=== PATIENT | male | born 1980 | race American Indian/Alaskan Native ===

== ENCOUNTER 2021-07-31 07:33 | Observation (INO) | payer BC ==
[2021-07-31] MEDS ORDERED: SODIUM CHLORIDE 0.9% 1000 ML 1,000 ML IV ONE ×3 (07:54→12:30)
[2021-07-31] MEDS ORDERED: INSULIN REGULAR, HUMAN 100 UNITS/1 ML IV ONE (07:55)
[2021-07-31] MEDS ORDERED: ONDANSETRON 4 MG/2 ML INJ IV ONE (07:57)
--- NOTE | 2021-07-31 07:58 | Emergency Department Report ---
ED General Adult HPI - General Chief complaint: Hyperglycemia Stated complaint: HIGH BLOOD SUGAR Time Seen by Provider: 07/31/21 07:52 Source: patient, EMS Mode of arrival: Stretcher Limitations: No Limitations - History of Present Illness Initial comments: Patient is 41 years old male with no significant past medical history however he does not remember the last time he saw a doctor. Patient brought to the emergency room via EMS for evaluation of hyperglycemia. Patient stated that for the last 2 weeks he started feeling generalized weakness, nausea and vomiting. He also reported polyuria and polydipsia. Patient denies any fever or chills. No chest pain, shortness of breath or abdominal pain. No urinary symptoms except for frequency. - Related Data Allergies Allergy/AdvReac Type Severity Reaction Status Date / Time No Known Allergies Allergy Verified 07/31/21 07:41 ED Review of Systems ROS: Stated complaint: HIGH BLOOD SUGAR Other details as noted in HPI Comment: All other systems reviewed and negative Constitutional: denies: chills, fever Respiratory: denies: cough, shortness of breath, SOB with exertion Cardiovascular: palpitations Gastrointestinal: nausea, vomiting. denies: abdominal pain, diarrhea, constipation, hematemesis, melena, hematochezia Musculoskeletal: denies: back pain Neurological: weakness. denies: headache, numbness, paresthesias, confusion, abnormal gait ED Physical Exam - General Limitations: No Limitations General appearance: alert, in no apparent distress - Head Head exam: Present: atraumatic, normocephalic, normal inspection - ENT ENT exam: Present: mucous membranes dry - Neck Neck exam: Present: normal inspection, full ROM. Absent: tenderness, meningismus - Respiratory Respiratory exam: Present: normal lung sounds bilaterally - Cardiovascular Cardiovascular Exam: Present: tachycardia. Absent: systolic murmur, diastolic murmur - GI/Abdominal GI/Abdominal exam: Present: soft, normal bowel sounds. Absent: distended, tenderness, guarding, rebound, rigid, organomegaly, mass, bruit, pulsatile mass, hernia - Extremities Exam Extremities exam: Present: normal inspection, full ROM, normal capillary refill. Absent: tenderness, pedal edema, joint swelling, calf tenderness - Back Exam Back exam: Present: normal inspection, full ROM. Absent: CVA tenderness (R), CVA tenderness (L) - Neurological Exam Neurological exam: Present: alert, oriented X3, CN II-XII intact, normal gait, reflexes normal. Absent: motor sensory deficit - Psychiatric Psychiatric exam: Present: normal mood - Skin Skin exam: Present: warm, intact, normal color ED Course Vital Signs 07/31/21 07/31/21 07/31/21 07:39 07:49 08:00 Pulse Rate 110 H 111 H Respiratory 30 H Rate Blood Pressure 132/97 Blood Pressure 128/92 [Left] O2 Sat by Pulse 100 95 96 Oximetry 07/31/21 07/31/21 07/31/21 08:30 08:41 09:00 Pulse Rate 112 H 104 H Respiratory 28 H 28 H 29 H Rate Blood Pressure 129/80 128/85 Blood Pressure [Left] O2 Sat by Pulse 97 99 100 Oximetry ED Medical Decision Making - Lab Data Result diagrams: 07/31/21 08:04 07/31/21 08:04 - EKG Data -: EKG Interpreted by Me EKG shows normal: sinus rhythm Rate: tachycardia - EKG Data Interpretation: no acute changes - Radiology Data Radiology results: report reviewed - Medical Decision Making Patient is 41 years old male with no significant past medical history however he does not remember the last time he saw a doctor. Patient brought to the emergency room via EMS for evaluation of hyperglycemia. Patient stated that for the last 2 weeks he started feeling generalized weakness, nausea and vomiting. He also reported polyuria and polydipsia. Patient denies any fever or chills. No chest pain, shortness of breath or abdominal pain. No urinary symptoms except for frequency. Patient found to be in DKA with anion gap of 30. Patient received normal saline and started on insulin drip. I discussed the patient with Dr. Alexis, she advised to admit the patient to Dr. Antony. Critical Care Time: Yes Critical care time in (mins) excluding proc time.: 35 Critical care attestation.: If time is entered above; I have spent that time in minutes in the direct care of this critically ill patient, excluding procedure time. ED Disposition Clinical Impression: DKA (diabetic ketoacidosis) Disposition: ADMITTED INPATIENT Is pt being admited?: Yes Condition: Stable Instructions: Diabetic Ketoacidosis (ED)
--- NOTE | 2021-07-31 08:20 | XRay Report ---
CHEST 1 VIEW 07/31/2021 7:12 AM INDICATION / CLINICAL INFORMATION: Lightheadedness/Dizziness. COMPARISON: None available. FINDINGS: SUPPORT DEVICES: None. HEART / MEDIASTINUM: The heart size and pulmonary vasculature are normal. LUNGS / PLEURA: Low lung volumes. Mild right basilar subsegmental atelectasis. The lungs are otherwis e clear. No pleural abnormality. No pneumothorax. ADDITIONAL FINDINGS: No significant additional findings. IMPRESSION: Low lung volumes with mild right basilar subsegmental atelectasis. Signer Name: Dileep Guerin MD Signed: 07/31/2021 8:15 AM Workstation Name: [id number]
[2021-07-31 08:36] LABS: Alanine Aminotransferase 24 units/L (7-56); Albumin 4.7 g/dL (3.9-5); BUN/Creatinine Ratio 15; Bilirubin,Direct 0.3 mg/dL (0-0.2); Blood Urea Nitrogen 16 mg/dL (9-20); Hemolysis Index 6
[2021-07-31 08:37] LABS: Basophils % (Auto) 0.2 % (0.0-1.8); Eosinophils % (Auto) 0.1 % (0.0-4.3); Hematocrit 49.4 % (35.5-45.6); Hemoglobin 16.8 gm/dl (11.8-15.2); Lymphocytes # (Auto) 0.4 K/mm3 (1.2-5.4); Lymphocytes % (Auto) 4.9 % (13.4-35.0); Mean Corpuscular HGB Conc 34 % (32-34); Mean Corpuscular Volume 80 fl (84-94); Monocytes # (Auto) 0.6 K/mm3 (0.0-0.8); Monocytes % (Auto) 7.3 % (0.0-7.3); Platelet Count 304 K/mm3 (140-440); Red Blood Count 6.22 M/mm3 (3.65-5.03); Red Cell Distribution Width 13.3 % (13.2-15.2)
[2021-07-31 08:49] LABS: INR 0.97 (0.87-1.13)
--- NOTE | 2021-07-31 09:56 | History and Physical Report ---
History of Present Illness History of present illness: Patient is 41 years old male with no significant past medical history however he does not remember the last time he saw a doctor. Patient brought to the emergency room via EMS for evaluation of hyperglycemia. Patient stated that for the last 2 weeks he started feeling generalized weakness, nausea and vomiting. He also reported polyuria and polydipsia. Patient denies any fever or chills. No chest pain, shortness of breath or abdominal pain. No urinary symptoms except for frequency. Medications and Allergies Allergies Allergy/AdvReac Type Severity Reaction Status Date / Time No Known Allergies Allergy Verified 07/31/21 07:41 Home Medications Medication Instructions Recorded Confirmed Last Taken Type No Known Home Medications [No 07/31/21 07/31/21 Unknown History Reported Home Medications] Active Meds: Active Medications Acetaminophen (Acetaminophen 325 Mg Tab) 650 mg PO Q6H PRN PRN Reason: Pain MILD(1-3)/Fever >100.5/TAVERAS Dextrose (Dextrose 50% In Water (25gm) 50 Ml Syringe) 0 ml IV Q30MIN PRN; Protocol PRN Reason: Hypoglycemia Insulin Human Regular 100 (units/ Sodium Chloride) 100 mls @ 1 mls/hr IV TITR MARIANNE; Protocol Sodium Chloride (Nacl 0.9% 1000 Ml) 1,000 mls @ 999 mls/hr IV BOLUS ONE Stop: 07/31/21 09:58 Last Admin: 07/31/21 09:24 Dose: 999 mls/hr Insulin Human Regular 100 (units/ Sodium Chloride) 100 mls @ 1 mls/hr IV TITR MARIANNE; Protocol Potassium Chloride/Dextrose/Sod Cl (D5w/0.45% Nacl/Kcl 20 Meq) 20 meq in 1,000 mls @ 125 mls/hr IV DIRECT MARIANNE Morphine Sulfate (Morphine 2 Mg/1 Ml Inj) 2 mg IV Q4H PRN PRN Reason: Pain, Moderate (4-6) Ondansetron HCl (Ondansetron 4 Mg/2 Ml Inj) 4 mg IV Q8H PRN PRN Reason: Nausea And Vomiting Sodium Chloride (Sodium Chloride 0.9% 10 Ml Flush Syringe) 10 ml IV BID MARIANNE Sodium Chloride (Sodium Chloride 0.9% 10 Ml Flush Syringe) 10 ml IV PRN PRN PRN Reason: LINE FLUSH Review of Systems All systems: negative (As stated per HPI) Exam - Physical Exam Narrative exam: Physical Exam: VITAL SIGNS: Reviewed. GENERAL: The patient appears normally developed, Vital signs as documented. HEAD: No signs of head trauma. EYES: Pupils are equal. Extraocular motions intact. EARS: Hearing grossly intact. MOUTH: Oropharynx is normal. NECK: No adenopathy, no JVD. CHEST: Chest with clear breath sounds bilaterally. No wheezes, rales, or rhonchi. CARDIAC: Regular rate and rhythm. S1 and S2, without murmurs, gallops, or rubs. VASCULAR: No Edema. Peripheral pulses normal and equal in all extremities. ABDOMEN: Soft, non tender and non distended. No rebound or guarding, and no masses palpated. Bowel Sounds normal. MUSCULOSKELETAL: Good range of motion of all major joints. Extremities without clubbing, cyanosis or edema. NEUROLOGIC EXAM: Alert and oriented x 4. no focal sensory or strength deficits. PSYCHIATRIC: Mood normal. SKIN: detail exam as documented in skin assessment - Constitutional Vitals: Temp Pulse Resp BP Pulse Ox 104 H 29 H 128/85 100 07/31/21 09:00 07/31/21 09:00 07/31/21 09:00 07/31/21 09:00 HEART Score - HEART Score Troponin: Troponin T < 0.010 ng/mL (0.00-0.029) 07/31/21 08:04 Results - Labs CBC & Chem 7: 07/31/21 08:04 07/31/21 15:17 Labs: Laboratory Last Values WBC 8.5 K/mm3 (4.5-11.0) 07/31/21 08:04 RBC 6.22 M/mm3 (3.65-5.03) H 07/31/21 08:04 Hgb 16.8 gm/dl (11.8-15.2) H 07/31/21 08:04 Hct 49.4 % (35.5-45.6) H 07/31/21 08:04 MCV 80 fl (84-94) L 07/31/21 08:04 MCH 27 pg (28-32) L 07/31/21 08:04 MCHC 34 % (32-34) 07/31/21 08:04 RDW 13.3 % (13.2-15.2) 07/31/21 08:04 Plt Count 304 K/mm3 (140-440) 07/31/21 08:04 Lymph % (Auto) 4.9 % (13.4-35.0) L 07/31/21 08:04 [place] % (Auto) 7.3 % (0.0-7.3) 07/31/21 08:04 Eos % (Auto) 0.1 % (0.0-4.3) 07/31/21 08:04 Baso % (Auto) 0.2 % (0.0-1.8) 07/31/21 08:04 Lymph # (Auto) 0.4 K/mm3 (1.2-5.4) L 07/31/21 08:04 [place] # (Auto) 0.6 K/mm3 (0.0-0.8) 07/31/21 08:04 Eos # (Auto) 0.0 K/mm3 (0.0-0.4) 07/31/21 08:04 Baso # (Auto) 0.0 K/mm3 (0.0-0.1) 07/31/21 08:04 Seg Neutrophils % 87.5 % (40.0-70.0) H 07/31/21 08:04 Seg Neutrophils # 7.5 K/mm3 (1.8-7.7) 07/31/21 08:04 PT 13.9 Sec. (12.2-14.9) 07/31/21 08:04 INR 0.97 (0.87-1.13) 07/31/21 08:04 Sodium 129 mmol/L (137-145) L 07/31/21 08:04 Potassium 4.6 mmol/L (3.6-5.0) 07/31/21 08:04 Chloride 91.7 mmol/L (98-107) L 07/31/21 08:04 Carbon Dioxide 12 mmol/L (22-30) L 07/31/21 08:04 Anion Gap 30 mmol/L 07/31/21 08:04 BUN 16 mg/dL (9-20) 07/31/21 08:04 Creatinine 1.1 mg/dL (0.8-1.3) 07/31/21 08:04 Estimated GFR > 60 ml/min 07/31/21 08:04 BUN/Creatinine Ratio 15 % 07/31/21 08:04 Glucose 566 mg/dL (75-100) H* 04/20/22 08:04 Lactic Acid 2.00 mmol/L (0.7-2.0) 07/31/21 08:04 Calcium 10.0 mg/dL (8.4-10.2) 07/31/21 08:04 Total Bilirubin 1.50 mg/dL (0.1-1.2) H 07/31/21 08:04 Direct Bilirubin 0.3 mg/dL (0-0.2) H 07/31/21 08:04 Indirect Bilirubin 1.2 mg/dL 07/31/21 08:04 AST 20 units/L (5-40) 07/31/21 08:04 ALT 24 units/L (7-56) 07/31/21 08:04 Alkaline Phosphatase 153 units/L (35-129) H 07/31/21 08:04 Troponin T < 0.010 ng/mL (0.00-0.029) 07/31/21 08:04 Total Protein 8.0 g/dL (6.3-8.2) 07/31/21 08:04 Albumin 4.7 g/dL (3.9-5) 07/31/21 08:04 Albumin/Globulin Ratio 1.4 % 07/31/21 08:04 Lipase 21 units/L (13-60) 07/31/21 08:04 Assessment and Plan Assessment and plan: #Diabetic ketoacidosis - A, BG 566, ketonuria, VB.3 - weakness, polyuria, polydipsia, N/V. - DKA protocol: IV insulin, IVF. - NPO until AG closes - once AG closed (< 14), can start lantus 10 mg subq. Please run insulin gtt 1hr after lantus admin. Can initiate diabetic diet as well - accuchecks q1 hr until AG closed - BMP q4hr until AG closed #Type 2 diabetes with hyperglycemia Patient not taking any medications -Accu-Cheks every hour Order hemoglobin A1c #Hyponatremia -Likely pseudohyponatremia #Metabolic acidosis -Etiology DKA #Morbid obesity BMI greater than 30 +15min behavioral health counseling on weight loss and healthy diet adherence. #Advance care planning Disease education conducted, care plan discussed, diagnoses discussed, prognosis discussed, patient is full code, patient acknowledges understanding and agree with care plan, +30 minutes. The high probability of a clinically significant, sudden or life threatening deterioration of the [endocrine] system(s) required my full and direct attention, intervention and personal management. The aggregate critical care time was [60] minutes. This time is in addition to time spent performing reported procedures but includes the following: [x] Data Review and interpretation [x] Patient assessment and monitoring of vital signs [x] Documentation [x] Medication orders and management
[2021-07-31] MEDS ORDERED: ONDANSETRON 4 MG/2 ML INJ IV PRN (10:00)
[2021-07-31] MEDS ORDERED: ACETAMINOPHEN 325 MG TAB PO PRN (10:00)
[2021-07-31] MEDS ORDERED: DEXTROSE 50% IN WATER (25GM) 50 ML SYRINGE IV PRN (10:00)
[2021-07-31] MEDS ORDERED: MORPHINE 2 MG/1 ML INJ IV PRN (10:00)
[2021-07-31] MEDS: D5W/0.45% NACL/KCL 20 MEQ 20 MEQ/1,000 ML BAG IV SCH ×2 (10:30→23:05)
[2021-07-31] MEDS: INSULIN REGULAR, HUMAN 100 UNITS in SODIUM CHLORIDE 0.9% 99 ML IV SCH (10:30)
[2021-07-31 10:53] LABS: Bilirubin,Urine NEG (Negative); Blood,Urine NEG (Negative); Color,Urine Straw (Yellow); Urobilinogen,Urine < 2.0 mg/dL (<2.0)
[2021-07-31] MEDS ORDERED: INSULIN REGULAR, HUMAN 100 UNITS in SODIUM CHLORIDE 0.9% 99 ML IV SCH (11:00)
--- NOTE | 2021-07-31 11:03 | Electrocardiograph Report ---
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
[2021-07-31] MEDS ORDERED: SODIUM CHLORIDE 0.9% 1000 ML 1,000 ML IV SCH (12:15)
[2021-07-31 13:38] LABS: BUN/Creatinine Ratio 14; Blood Urea Nitrogen 15 mg/dL (9-20); Calcium 9.6 mg/dL (8.4-10.2); Hemolysis Index 8
--- NOTE | 2021-07-31 14:01 | Consultation ---
History of Present Illness - Reason for Consult Consult date: 07/31/21 DKA Requesting physician: CANDACE IVERSON - History of Present Illness 41 y/o with known diabetes admitted with DKA Medications and Allergies Allergies Allergy/AdvReac Type Severity Reaction Status Date / Time No Known Allergies Allergy Verified 07/31/21 07:41 Home Medications Medication Instructions Recorded Confirmed Last Taken Type No Known Home Medications [No 07/31/21 07/31/21 Unknown History Reported Home Medications] Active Meds: Active Medications Acetaminophen (Acetaminophen 325 Mg Tab) 650 mg PO Q6H PRN PRN Reason: Pain MILD(1-3)/Fever >100.5/TAVERAS Dextrose (Dextrose 50% In Water (25gm) 50 Ml Syringe) 0 ml IV Q30MIN PRN; Protocol PRN Reason: Hypoglycemia Insulin Human Regular 100 (units/ Sodium Chloride) 100 mls @ 1 mls/hr IV TITR MARIANNE; Protocol Last Titration: 07/31/21 12:45 Dose: 9 units/hr, 9 mls/hr Potassium Chloride/Dextrose/Sod Cl (D5w/0.45% Nacl/Kcl 20 Meq) 20 meq in 1,000 mls @ 125 mls/hr IV DIRECT MARIANNE Last Infusion: 07/31/21 12:30 Dose: 0 mls/hr Sodium Chloride (Nacl 0.9% 1000 Ml) 1,000 mls @ 125 mls/hr IV DIRECT MARIANNE Morphine Sulfate (Morphine 2 Mg/1 Ml Inj) 2 mg IV Q4H PRN PRN Reason: Pain, Moderate (4-6) Ondansetron HCl (Ondansetron 4 Mg/2 Ml Inj) 4 mg IV Q8H PRN PRN Reason: Nausea And Vomiting Sodium Chloride (Sodium Chloride 0.9% 10 Ml Flush Syringe) 10 ml IV BID MARIANNE Last Admin: 07/31/21 10:30 Dose: 10 ml Sodium Chloride (Sodium Chloride 0.9% 10 Ml Flush Syringe) 10 ml IV PRN PRN PRN Reason: LINE FLUSH Last Admin: 07/31/21 10:30 Dose: 10 ml Exam - Constitutional Vitals: Temp Pulse Resp BP Pulse Ox 99.8 F H 116 H 30 H 113/76 96 07/31/21 11:35 07/31/21 13:55 07/31/21 13:50 07/31/21 13:50 07/31/21 13:50 Results - Labs CBC & Chem 7: 08/01/21 04:28 08/01/21 04:28 Labs: Abnormal lab results 07/31/21 07/31/21 07/31/21 Range/Units 08:04 08:04 09:52 RBC 6.22 H (3.65-5.03) M/mm3 Hgb 16.8 H (11.8-15.2) gm/dl Hct 49.4 H (35.5-45.6) % MCV 80 L (84-94) fl MCH 27 L (28-32) pg Lymph % (Auto) 4.9 L (13.4-35.0) % Lymph # (Auto) 0.4 L (1.2-5.4) K/mm3 Seg Neutrophils % 87.5 H (40.0-70.0) % Sodium 129 L (137-145) mmol/L Potassium (3.6-5.0) mmol/L Chloride 91.7 L (98-107) mmol/L Carbon Dioxide 12 L (22-30) mmol/L Glucose 566 H* (75-100) mg/dL Hemoglobin A1c 14.3 H (4-6) % Total Bilirubin 1.50 H (0.1-1.2) mg/dL Direct Bilirubin 0.3 H (0-0.2) mg/dL Alkaline Phosphatase 153 H (35-129) units/L 07/31/21 Range/Units 12:48 RBC (3.65-5.03) M/mm3 Hgb (11.8-15.2) gm/dl Hct (35.5-45.6) % MCV (84-94) fl MCH (28-32) pg Lymph % (Auto) (13.4-35.0) % Lymph # (Auto) (1.2-5.4) K/mm3 Seg Neutrophils % (40.0-70.0) % Sodium (137-145) mmol/L Potassium 5.1 H (3.6-5.0) mmol/L Chloride (98-107) mmol/L Carbon Dioxide 17 L (22-30) mmol/L Glucose 402 H (75-100) mg/dL Hemoglobin A1c (4-6) % Total Bilirubin (0.1-1.2) mg/dL Direct Bilirubin (0-0.2) mg/dL Alkaline Phosphatase (35-129) units/L Assessment and Plan 41 y/o male with DKA 1. NPO 2. Insulin Drip 3. Normal saline until sugar is less than 250 then switch to D5, may or may not need K 4. Diabetic education 5. Will continue to follow CCT 31 minutes.
[2021-07-31 16:01] LABS: BUN/Creatinine Ratio 13; Blood Urea Nitrogen 14 mg/dL (9-20); Calcium 9.1 mg/dL (8.4-10.2); Hemolysis Index 6
[2021-07-31 18:18] LABS: BUN/Creatinine Ratio 11; Blood Urea Nitrogen 13 mg/dL (9-20); Calcium 9.3 mg/dL (8.4-10.2); Hemolysis Index 9
[2021-07-31 21:35] LABS: BUN/Creatinine Ratio 12; Blood Urea Nitrogen 12 mg/dL (9-20); Calcium 8.8 mg/dL (8.4-10.2); Hemolysis Index 2
[2021-08-01] MEDS: INSULIN REGULAR, HUMAN 100 UNITS in SODIUM CHLORIDE 0.9% 99 ML IV SCH (00:21)
[2021-08-01 05:13] LABS: Basophils % (Auto) 0.4 % (0.0-1.8); Eosinophils # (Auto) 0.2 K/mm3 (0.0-0.4); Eosinophils % (Auto) 2.1 % (0.0-4.3); Hematocrit 43.8 % (35.5-45.6); Hemoglobin 14.8 gm/dl (11.8-15.2); Lymphocytes # (Auto) 0.8 K/mm3 (1.2-5.4); Lymphocytes % (Auto) 9.4 % (13.4-35.0); Mean Corpuscular HGB Conc 34 % (32-34); Mean Corpuscular Volume 80 fl (84-94); Monocytes # (Auto) 1.1 K/mm3 (0.0-0.8); Monocytes % (Auto) 13.4 % (0.0-7.3); Platelet Count 262 K/mm3 (140-440); Red Blood Count 5.49 M/mm3 (3.65-5.03); Red Cell Distribution Width 13.1 % (13.2-15.2)
[2021-08-01] MEDS: D5W/0.45% NACL/KCL 20 MEQ 20 MEQ/1,000 ML BAG IV SCH (05:25)
[2021-08-01 05:30] LABS: BUN/Creatinine Ratio 8; Blood Urea Nitrogen 10 mg/dL (9-20); Calcium 8.6 mg/dL (8.4-10.2); Hemolysis Index 12
[2021-08-01] MEDS ORDERED: DEXTROSE 50% IN WATER (25GM) 50 ML SYRINGE IV PRN (07:35)
[2021-08-01] MEDS ORDERED: INSULIN GLARGINE 100 UNITS/ML SUB-Q SCH (08:00)
--- NOTE | 2021-08-01 10:05 | Discharge Summary ---
Providers - Providers Date of Admission: 07/31/21 09:50 Date of discharge: 08/01/21 Attending physician: CANDACE IVERSON MD 07/31/21 09:48 Consult to Physician [CONS] Routine Comment: Consulting Provider: JUANITA GARNER Physician Instructions: Reason For Exam: dka 07/31/21 09:50 Consult to Dietitian/Nutrition [CONS] Routine Physician Instructions: Reason For Exam: Reason for Consult: Diet education Primary care physician: GENERAL ENGINEER Hospitalization Condition: Stable Hospital course: This is a 41-year-old male with morbid obesity who presents to the emergency department via EMS for evaluation of hyperglycemia and per patient for the past 2 weeks he has had generalized weakness, nausea and vomiting, polyuria and polydipsia. Work-up emergency department showed lab work consistent with DKA and patient was admitted to the hospitalist service with consults to CCM. This morning patient's anion gap was noted to be closed and patient was transitioned to SSI and long-acting insulin. Patient will be discharged home with encouragement to follow consistent carbohydrate diet, lifestyle modifications and follow-up with primary care physician within 1 to 2 weeks of discharge. Medical compliance strongly encouraged. Assessment and Plan: Diabetic ketoacidosis - Admit A, BG 566, ketonuria, VB.3 - c/o weakness, polyuria, polydipsia, N/V. - s/p insulin gtt -recovered quicker than anticipated - Blood glucose monitoring per PCP instructions - Will discharge with insulin and blood glucose monitoring supplies - Strongly encouraged follow up with and establishing PCP (nadia also informed over phone Angelita Silva) Type 2 diabetes with hyperglycemia - Per family and patinet is was never diagnosed with DM - Discharge with monitoring supplies Hemoglobin A1C 14.3 Metabolic acidosis -resolved Morbid obesity BMI greater than 30 -counseling on weight loss and healthy diet adherence. Disposition: 30 STILL A PATIENT Final Discharge Diagnosis (Prints w/discharge instructions): s/p Diabetic ketoacidosis, morbid obesity, Diabetes Mellitus Time spent for discharge: 60 Core Measure Documentation - Palliative Care Palliative Care/ Comfort Measures: Not Applicable - Core Measures Any of the following diagnoses?: none Exam - Constitutional Vitals: Temp Pulse Resp BP Pulse Ox 98.0 F 82 10 L 123/84 99 08/01/21 08:00 08/01/21 09:00 08/01/21 09:00 08/01/21 09:00 08/01/21 08:51 General appearance: Present: obese - EENT Eyes: Present: PERRL, EOM intact ENT: hearing intact, clear oral mucosa - Neck Neck: Present: normal ROM - Respiratory Respiratory effort: normal Respiratory: bilateral: CTA - Cardiovascular Rhythm: regular Heart Sounds: Present: S1 & S2. Absent: systolic murmur, diastolic murmur - Extremities Extremities: no ischemia, pulses intact, pulses symmetrical, No edema, normal temperature, normal color, Full ROM Peripheral Pulses: within normal limits - Abdominal General gastrointestinal: Present: soft, non-tender, non-distended, normal bowel sounds - Integumentary Integumentary: Present: clear, warm, dry - Musculoskeletal Musculoskeletal: strength equal bilaterally - Psychiatric Psychiatric: appropriate mood/affect, cooperative - Neurologic Neurologic: CNII-XII intact, no focal deficits, moves all extremities - Allied Health Allied health notes reviewed: nursing, social work Plan Diet: diabetic Special Instructions: record blood sugar diary, smoking cessation Follow up with: PRIMARY CARE, [Primary Care Provider] - 7 Days Prescriptions: Lispro Insulin [HumaLOG] 0 unit SUB-Q ACHS #1 vial Syringe-Needle,Insulin,0.5 ml [Insulin Syringe/Needle 0.5 ML] 1 each MC QDAY #1 box Insulin Glargine [Lantus VIAL] 40 units SUB-Q QAMDIAB #1 vial Other Discharge Orders: Glucometer (Amb) Location: None Selected Glucometer supplies[Amb] Location: None Selected
--- NOTE | 2021-08-01 10:11 | Progress Note ---
Assessment and Plan 41 y/o male with DKA 08/01/21: stable from a critical care standpoint for transfer to floor. Will sign off. 1. NPO 2. Insulin Drip 3. Normal saline until sugar is less than 250 then switch to D5, may or may not need K 4. Diabetic education 5. Will continue to follow CCT 31 minutes. Subjective Date of service: 08/01/21 Interval history: Anion Gap is closed. Started long acting insulin today. Objective - Constitutional Vitals: Vital Signs - 12hr 07/31/21 07/31/21 07/31/21 22:11 22:21 22:31 Temperature Pulse Rate 102 H 101 H 99 H Pulse Rate [ From Monitor] Respiratory 26 H 27 H 19 Rate Blood Pressure 118/81 118/81 118/81 O2 Sat by Pulse 96 97 96 Oximetry 07/31/21 07/31/21 07/31/21 22:41 22:51 23:00 Temperature Pulse Rate 100 H 96 H 144 H Pulse Rate [ From Monitor] Respiratory 25 H 21 25 H Rate Blood Pressure 118/81 118/81 108/67 O2 Sat by Pulse 96 94 96 Oximetry 07/31/21 07/31/21 07/31/21 23:11 23:21 23:31 Temperature Pulse Rate 111 H 114 H 99 H Pulse Rate [ From Monitor] Respiratory 32 H 35 H 16 Rate Blood Pressure 108/67 108/67 108/67 O2 Sat by Pulse 96 96 96 Oximetry 07/31/21 07/31/21 08/01/21 23:41 23:51 00:00 Temperature 99.6 F Pulse Rate 85 118 H Pulse Rate [ From Monitor] Respiratory 27 H 25 H 24 Rate Blood Pressure 108/67 108/67 100/64 O2 Sat by Pulse 98 96 97 Oximetry 08/01/21 08/01/21 08/01/21 00:11 00:21 00:31 Temperature Pulse Rate 93 H 98 H 96 H Pulse Rate [ From Monitor] Respiratory 32 H 25 H 17 Rate Blood Pressure 100/64 100/64 100/64 O2 Sat by Pulse 96 95 98 Oximetry 08/01/21 08/01/21 08/01/21 00:41 00:51 01:01 Temperature Pulse Rate 94 H 94 H 93 H Pulse Rate [ From Monitor] Respiratory 20 34 H 23 Rate Blood Pressure 100/64 100/64 113/78 O2 Sat by Pulse 98 96 95 Oximetry 08/01/21 08/01/21 08/01/21 01:11 01:21 01:31 Temperature Pulse Rate 95 H 95 H 94 H Pulse Rate [ From Monitor] Respiratory 22 24 18 Rate Blood Pressure 113/78 113/78 113/78 O2 Sat by Pulse 95 97 97 Oximetry 08/01/21 08/01/21 08/01/21 01:41 01:51 02:00 Temperature Pulse Rate 93 H 96 H 94 H Pulse Rate [ From Monitor] Respiratory 20 18 20 Rate Blood Pressure 113/78 113/78 95/76 O2 Sat by Pulse 97 97 95 Oximetry 08/01/21 08/01/21 08/01/21 02:11 02:21 02:31 Temperature Pulse Rate 96 H 91 H 89 Pulse Rate [ From Monitor] Respiratory 26 H 23 26 H Rate Blood Pressure 95/76 95/76 95/76 O2 Sat by Pulse 98 95 97 Oximetry 08/01/21 08/01/21 08/01/21 02:41 02:51 03:00 Temperature Pulse Rate 90 93 H 94 H Pulse Rate [ From Monitor] Respiratory 25 H 27 H 22 Rate Blood Pressure 95/76 95/76 101/74 O2 Sat by Pulse 98 99 97 Oximetry 08/01/21 08/01/21 08/01/21 03:11 03:21 03:31 Temperature Pulse Rate 86 89 89 Pulse Rate [ From Monitor] Respiratory 21 24 24 Rate Blood Pressure 101/74 101/74 101/74 O2 Sat by Pulse 96 96 98 Oximetry 08/01/21 08/01/21 08/01/21 03:41 03:51 04:00 Temperature 97.6 F Pulse Rate 92 H 90 88 Pulse Rate [ From Monitor] Respiratory 26 H 27 H 12 Rate Blood Pressure 101/74 101/74 111/75 O2 Sat by Pulse 97 97 98 Oximetry 08/01/21 08/01/21 08/01/21 04:11 04:21 04:31 Temperature Pulse Rate 90 89 84 Pulse Rate [ From Monitor] Respiratory 22 20 21 Rate Blood Pressure 111/75 111/75 111/75 O2 Sat by Pulse 97 93 97 Oximetry 08/01/21 08/01/21 08/01/21 04:41 04:51 05:00 Temperature Pulse Rate 85 89 85 Pulse Rate [ From Monitor] Respiratory 24 24 24 Rate Blood Pressure 111/75 111/75 117/72 O2 Sat by Pulse 97 97 95 Oximetry 08/01/21 08/01/21 08/01/21 05:11 05:21 05:31 Temperature Pulse Rate 87 87 87 Pulse Rate [ From Monitor] Respiratory 19 18 13 Rate Blood Pressure 117/72 117/72 117/72 O2 Sat by Pulse 98 98 98 Oximetry 08/01/21 08/01/21 08/01/21 05:41 05:51 06:00 Temperature Pulse Rate 88 86 85 Pulse Rate [ From Monitor] Respiratory 17 19 15 Rate Blood Pressure 117/72 117/72 110/75 O2 Sat by Pulse 98 99 99 Oximetry 08/01/21 08/01/21 08/01/21 06:11 06:21 06:31 Temperature Pulse Rate 91 H 88 84 Pulse Rate [ From Monitor] Respiratory 13 16 14 Rate Blood Pressure 110/75 110/75 110/75 O2 Sat by Pulse 99 98 98 Oximetry 08/01/21 08/01/21 08/01/21 06:41 06:51 07:00 Temperature Pulse Rate 84 81 77 Pulse Rate [ From Monitor] Respiratory 23 14 20 Rate Blood Pressure 110/75 110/75 107/80 O2 Sat by Pulse 97 98 Oximetry 08/01/21 08/01/21 08/01/21 07:11 07:21 07:31 Temperature Pulse Rate 86 86 84 Pulse Rate [ From Monitor] Respiratory 23 14 18 Rate Blood Pressure 107/80 107/80 107/80 O2 Sat by Pulse 97 97 99 Oximetry 08/01/21 08/01/21 08/01/21 07:41 07:51 08:00 Temperature 98.0 F Pulse Rate 81 86 81 Pulse Rate [ 81 From Monitor] Respiratory 24 12 17 Rate Blood Pressure 107/80 107/80 O2 Sat by Pulse 97 99 100 Oximetry 08/01/21 08/01/21 08/01/21 08:01 08:11 08:21 Temperature Pulse Rate 81 83 80 Pulse Rate [ From Monitor] Respiratory 15 17 24 Rate Blood Pressure 129/88 129/88 129/88 O2 Sat by Pulse 100 99 Oximetry 08/01/21 08/01/21 08/01/21 08:31 08:41 08:51 Temperature Pulse Rate 79 83 80 Pulse Rate [ From Monitor] Respiratory 20 18 17 Rate Blood Pressure 129/88 129/88 129/88 O2 Sat by Pulse 100 100 99 Oximetry 08/01/21 09:00 Temperature Pulse Rate 82 Pulse Rate [ From Monitor] Respiratory 10 L Rate Blood Pressure 123/84 O2 Sat by Pulse Oximetry - Labs CBC & Chem 7: 08/01/21 04:28 08/01/21 04:28 Labs: Abnormal lab results 07/31/21 07/31/21 07/31/21 Range/Units 09:52 10:29 11:40 RBC (3.65-5.03) M/mm3 MCV (84-94) fl MCH (28-32) pg RDW (13.2-15.2) % Lymph % (Auto) (13.4-35.0) % [place] % (Auto) (0.0-7.3) % Lymph # (Auto) (1.2-5.4) K/mm3 [place] # (Auto) (0.0-0.8) K/mm3 Seg Neutrophils % (40.0-70.0) % Potassium (3.6-5.0) mmol/L Chloride (98-107) mmol/L Carbon Dioxide (22-30) mmol/L Glucose (75-100) mg/dL POC Glucose 393 H 412 H (70-105) mg/dL Hemoglobin A1c 14.3 H (4-6) % 07/31/21 07/31/21 07/31/21 Range/Units 12:43 12:48 13:58 RBC (3.65-5.03) M/mm3 MCV (84-94) fl MCH (28-32) pg RDW (13.2-15.2) % Lymph % (Auto) (13.4-35.0) % [place] % (Auto) (0.0-7.3) % Lymph # (Auto) (1.2-5.4) K/mm3 [place] # (Auto) (0.0-0.8) K/mm3 Seg Neutrophils % (40.0-70.0) % Potassium 5.1 H (3.6-5.0) mmol/L Chloride (98-107) mmol/L Carbon Dioxide 17 L (22-30) mmol/L Glucose 402 H (75-100) mg/dL POC Glucose 368 H 306 H (70-105) mg/dL Hemoglobin A1c (4-6) % 07/31/21 07/31/21 07/31/21 Range/Units 14:56 15:17 16:04 RBC (3.65-5.03) M/mm3 MCV (84-94) fl MCH (28-32) pg RDW (13.2-15.2) % Lymph % (Auto) (13.4-35.0) % [place] % (Auto) (0.0-7.3) % Lymph # (Auto) (1.2-5.4) K/mm3 [place] # (Auto) (0.0-0.8) K/mm3 Seg Neutrophils % (40.0-70.0) % Potassium (3.6-5.0) mmol/L Chloride (98-107) mmol/L Carbon Dioxide (22-30) mmol/L Glucose 276 H (75-100) mg/dL POC Glucose 274 H 256 H (70-105) mg/dL Hemoglobin A1c (4-6) % 07/31/21 07/31/21 07/31/21 Range/Units 16:55 17:30 18:07 RBC (3.65-5.03) M/mm3 MCV (84-94) fl MCH (28-32) pg RDW (13.2-15.2) % Lymph % (Auto) (13.4-35.0) % [place] % (Auto) (0.0-7.3) % Lymph # (Auto) (1.2-5.4) K/mm3 [place] # (Auto) (0.0-0.8) K/mm3 Seg Neutrophils % (40.0-70.0) % Potassium (3.6-5.0) mmol/L Chloride (98-107) mmol/L Carbon Dioxide 20 L (22-30) mmol/L Glucose 241 H (75-100) mg/dL POC Glucose 238 H 243 H (70-105) mg/dL Hemoglobin A1c (4-6) % 07/31/21 07/31/21 07/31/21 Range/Units 18:45 20:04 21:03 RBC (3.65-5.03) M/mm3 MCV (84-94) fl MCH (28-32) pg RDW (13.2-15.2) % Lymph % (Auto) (13.4-35.0) % [place] % (Auto) (0.0-7.3) % Lymph # (Auto) (1.2-5.4) K/mm3 [place] # (Auto) (0.0-0.8) K/mm3 Seg Neutrophils % (40.0-70.0) % Potassium (3.6-5.0) mmol/L Chloride 107.5 H (98-107) mmol/L Carbon Dioxide 20 L (22-30) mmol/L Glucose 231 H (75-100) mg/dL POC Glucose 239 H 231 H (70-105) mg/dL Hemoglobin A1c (4-6) % 07/31/21 07/31/21 07/31/21 Range/Units 21:12 22:06 23:04 RBC (3.65-5.03) M/mm3 MCV (84-94) fl MCH (28-32) pg RDW (13.2-15.2) % Lymph % (Auto) (13.4-35.0) % [place] % (Auto) (0.0-7.3) % Lymph # (Auto) (1.2-5.4) K/mm3 [place] # (Auto) (0.0-0.8) K/mm3 Seg Neutrophils % (40.0-70.0) % Potassium (3.6-5.0) mmol/L Chloride (98-107) mmol/L Carbon Dioxide (22-30) mmol/L Glucose (75-100) mg/dL POC Glucose 208 H 196 H 197 H (70-105) mg/dL Hemoglobin A1c (4-6) % 08/01/21 08/01/21 08/01/21 Range/Units 00:15 01:14 02:05 RBC (3.65-5.03) M/mm3 MCV (84-94) fl MCH (28-32) pg RDW (13.2-15.2) % Lymph % (Auto) (13.4-35.0) % [place] % (Auto) (0.0-7.3) % Lymph # (Auto) (1.2-5.4) K/mm3 [place] # (Auto) (0.0-0.8) K/mm3 Seg Neutrophils % (40.0-70.0) % Potassium (3.6-5.0) mmol/L Chloride (98-107) mmol/L Carbon Dioxide (22-30) mmol/L Glucose (75-100) mg/dL POC Glucose 177 H 167 H 174 H (70-105) mg/dL Hemoglobin A1c (4-6) % 08/01/21 08/01/21 08/01/21 Range/Units 03:01 04:07 04:28 RBC 5.49 H (3.65-5.03) M/mm3 MCV 80 L (84-94) fl MCH 27 L (28-32) pg RDW 13.1 L (13.2-15.2) % Lymph % (Auto) 9.4 L (13.4-35.0) % [place] % (Auto) 13.4 H (0.0-7.3) % Lymph # (Auto) 0.8 L (1.2-5.4) K/mm3 [place] # (Auto) 1.1 H (0.0-0.8) K/mm3 Seg Neutrophils % 74.7 H (40.0-70.0) % Potassium (3.6-5.0) mmol/L Chloride (98-107) mmol/L Carbon Dioxide (22-30) mmol/L Glucose (75-100) mg/dL POC Glucose 167 H 205 H (70-105) mg/dL Hemoglobin A1c (4-6) % 08/01/21 08/01/21 08/01/21 Range/Units 04:28 05:05 06:07 RBC (3.65-5.03) M/mm3 MCV (84-94) fl MCH (28-32) pg RDW (13.2-15.2) % Lymph % (Auto) (13.4-35.0) % [place] % (Auto) (0.0-7.3) % Lymph # (Auto) (1.2-5.4) K/mm3 [place] # (Auto) (0.0-0.8) K/mm3 Seg Neutrophils % (40.0-70.0) % Potassium (3.6-5.0) mmol/L Chloride 109.0 H (98-107) mmol/L Carbon Dioxide (22-30) mmol/L Glucose 183 H (75-100) mg/dL POC Glucose 152 H 146 H (70-105) mg/dL Hemoglobin A1c (4-6) % 08/01/21 Range/Units 07:25 RBC (3.65-5.03) M/mm3 MCV (84-94) fl MCH (28-32) pg RDW (13.2-15.2) % Lymph % (Auto) (13.4-35.0) % [place] % (Auto) (0.0-7.3) % Lymph # (Auto) (1.2-5.4) K/mm3 [place] # (Auto) (0.0-0.8) K/mm3 Seg Neutrophils % (40.0-70.0) % Potassium (3.6-5.0) mmol/L Chloride (98-107) mmol/L Carbon Dioxide (22-30) mmol/L Glucose (75-100) mg/dL POC Glucose 152 H (70-105) mg/dL Hemoglobin A1c (4-6) % Medications & Allergies - Medications Allergies/Adverse Reactions: Allergies No Known Allergies Allergy (Verified 07/31/21 07:41) Home Medications: Home Medications Medication Instructions Recorded Confirmed Last Taken Type No Known Home Medications [No 07/31/21 07/31/21 Unknown History Reported Home Medications] Active Medications: Generic Name Dose Route Start Last Admin Trade Name Freq PRN Reason Stop Dose Admin Acetaminophen 650 mg 07/31/21 10:00 Acetaminophen 325 Mg Tab PO Q6H PRN Pain MILD(1-3)/Fever >100.5/TAVERAS Dextrose 50 ml 08/01/21 07:35 Dextrose 50% In Water (25gm) 50 Ml Syringe IV Q30MIN PRN Hypoglycemia Protocol Insulin Glargine 40 units 08/01/21 08:00 08/01/21 08:34 Insulin Glargine 100 Units/Ml SUB-Q 40 units QAMDIAB MARIANNE Administration Insulin Human Lispro 0 unit 08/01/21 11:30 Insulin Lispro 100 Unit/Ml SUB-Q ACHS MARIANNE Protocol Ondansetron HCl 4 mg 07/31/21 10:00 Ondansetron 4 Mg/2 Ml Inj IV Q8H PRN Nausea And Vomiting Sodium Chloride 10 ml 07/31/21 10:00 07/31/21 10:30 Sodium Chloride 0.9% 10 Ml Flush Syringe IV 10 ml BID MARIANNE Administration Sodium Chloride 10 ml 07/31/21 10:00 07/31/21 10:30 Sodium Chloride 0.9% 10 Ml Flush Syringe IV 10 ml PRN PRN Administration LINE FLUSH HEART Score - HEART Score Troponin: Troponin T < 0.010 ng/mL (0.00-0.029) 07/31/21 08:04
[2021-08-01] MEDS: INSULIN LISPRO 100 UNIT/ML SUB-Q SCH ×2 (12:15→17:19)
[2021-08-01 18:02] VITALS: BP 134/88
== END 2021-08-01 18:30 | disposition home or self-care (01) ==
LOC: ED 07:33 → CC1 09:50 → INTOOBSV 09:50
PROVIDERS: ADMIT Internal Medicine; ATTEND Internal Medicine
DX: E11.10 Type 2 diabetes mellitus with ketoacidosis without coma (principal); E11.65 Type 2 diabetes mellitus with hyperglycemia; E87.1 Hypo-osmolality and hyponatremia; E66.01 Morbid (severe) obesity due to excess calories; Z68.31 Body mass index [BMI] 31.0-31.9, adult; Z79.4 Long term (current) use of insulin; Z79.899 Other long term (current) drug therapy; Z98.890 Other specified postprocedural states
CPT/HCPCS: 36415; 71045; 80048; 80076; 81001; 82140; 82962; 83036; 83690; 83735; 84100; 84484; 85025; 85610; 93005; 96361; 96365; 96366; 96372; 96375; 99291; G0378; J2405; J3480; J7030; Q9967; J1815